=== PATIENT | male | born 1975 | race Two or more races ===

== ENCOUNTER 2023-12-07 17:17 | Emergency (ER) | payer SELFPAY ==
[2023-12-07 17:25] VITALS: BP 163/103; PULSE 104; RESP 22; TEMP 36.6; O2SAT 100; BMI 20.2
--- NOTE | 2023-12-07 17:36 | XR_ITS ---
The [address] [address] Patient Name: ANDRE SANCHEZ MRN: [id number] date: 1975 Sex: M Assigned Patient Location: ER Current Patient Location: ER Accession/Order Number: [id number] Exam Date: 12/07/2023 17:50 Report Date: 12/07/2023 18:16 At the request of: YULIYA BONILLA Procedure: XR chest 1V EXAM: XR chest 1V at 1747 hours HISTORY: Cough for 4 days. COMPARISON: None. TECHNIQUE: AP upright portable chest x-ray FINDINGS: The heart is not enlarged and the vasculature is not distended. No acute infiltrate, effusion or pneumothorax is identified. The lungs may be a bit overexpanded. The osseous structures are grossly intact. XR/XR chest 1V IMPRESSION: No acute infiltrate or evidence of cardiac decompensation. Direct comparison with a previous study would be helpful in determining the chronicity of these findings. Electronically authenticated by: CALLY FRYE Date: 12/07/2023 18:16
--- NOTE | 2023-12-07 17:36 | ECG_ITS ---
The [facility] Test Date: 2023-12-07 Pat Name: ANDRE SANCHEZ Department: Room: - Gender: Male [employer]: : 1975 Requested By: Order Number: [id number] Reading MD: KEYA GREER Measurements Intervals [place] Rate: 98 P: 82 RI: 146 QRS: 26 QRSD: 100 T: 76 QT: 372 QTc: 427 Interpretive Statements 1100 Sinus rhythm 1474 with frequent supraventricular premature complexes 2420 RSR (QR) in lead V1/V2, consistent with right ventricular conduction delay 3434 Septal myocardial infarction, age undetermined 9150 abnormal ECG No previous ECG available for comparison Electronically Signed On 12-07-2023 22:53:33 EDT by KEYA GREER
--- NOTE | 2023-12-07 17:38 | ED_ITS ---
HPI - General Adult General Chief complaint: Nausea/Vomiting/Diarrhea Stated complaint: Upper Respiratory Infection Time Seen by Provider: 12/07/23 17:27 Source: patient Mode of arrival: walk-in Limitations: no limitations History of Present Illness HPI narrative: Patient is a 48-year-old male who presents to the emergency department for 4-day history of flulike illness. He states at the beginning of the course of his illness, he had fevers and he has had issues with nausea and vomiting for the last 4 days. He has not been able to hold anything down per the patient. He has not had diarrhea. He reports generalized bodyaches, low back pain, generalized weakness. He reports some sputum production with coughing. No sick contacts in the home. He states he is continuing to urinate. Related Data Previous Rx's ?Medication ?Instructions ?Recorded ooijrhbnlfmwhau-izfnadahcjkhjhk-DO 10 ml PO Q6H PRN cold symptoms 12/07/23 2 mg-30 mg-10 mg/5 mL oral syrup #200 mL (Bromfed DM) ondansetron 4 mg disintegrating 4 mg PO Q6H PRN nausea and 12/07/23 tablet vomiting #12 tabs Allergies Allergy/AdvReac Type Severity Reaction Status Date / Time No Known Drug Allergies Allergy Verified 12/07/23 17:24 Review of Systems ROS Constitutional Reports: fever and chills Ears, nose, mouth, and throat Reports: nasal congestion; Denies: throat pain Respiratory Reports: cough; Denies: shortness of breath Gastrointestinal Reports: nausea and vomiting; Denies: diarrhea Musculoskeletal Reports: back pain Integumentary/Breast Denies: rash Neurological Reports: headache Exam Narrative Exam Narrative: Gen.: Awake, alert, in no distress Head: Normocephalic, atraumatic ENT: Moist mucous membranes Respiratory: No respiratory distress, lungs clear bilaterally Cardio: Regular rate and rhythm Gastrointestinal: Abdomen is soft, nondistended and nontender to palpation Extremities: Moves extremities equally Psych: Normal mood and affect Neuro: No focal neuro deficit Skin: Warm, dry, intact Constitutional Vital Signs, click to edit/add: Last Vital Signs Temp 97.8 F 12/07/23 17:25 Pulse 104 H 12/07/23 17:25 Resp 22 12/07/23 17:25 BP 163/103 H 12/07/23 17:25 Pulse Ox 100 12/07/23 17:25 O2 Del Method Room Air 12/07/23 17:25 Course Vital Signs Vital signs: Vital Signs Temperature 97.8 F 12/07/23 17:25 Pulse Rate 104 H 12/07/23 17:25 Respiratory Rate 22 12/07/23 17:25 Blood Pressure 163/103 H 12/07/23 17:25 Pulse Oximetry 100 12/07/23 17:25 Oxygen Delivery Method Room Air 12/07/23 17:25 Temperature 97.8 F 12/07/23 17:25 Pulse Rate 104 H 12/07/23 17:25 Respiratory Rate 22 12/07/23 17:25 Blood Pressure 163/103 H 12/07/23 17:25 Pulse Oximetry 100 12/07/23 17:25 Oxygen Delivery Method Room Air 12/07/23 17:25 Medical Decision Making MDM Narrative Medical decision making narrative: Patient was stable vitals in the ER, EKG, labs, viral swabs obtained which are unremarkable. Patient noted to be mildly dehydrated. He was given IV fluids and Zofran in the ER, no persistent episodes of emesis in the ER. He was treated for mild hypokalemia with oral potassium chloride and discharged home with Bromfed-DM and Zofran. Follow-up with PCP and return to the ER if symptoms change or worsen Medical Records Medical records reviewed: Yes I reviewed the patient's medical records Lab Data Lab results reviewed: Yes I reviewed the patient's lab results Labs: Lab Results 12/07/23 12/07/23 12/07/23 Range/Units 17:24 17:35 17:40 WBC 5.3 (4.0-11.0) 10^3/uL RBC 4.94 (4.70-6.10) 10^6/uL Hgb 15.9 (14.0-18.0) g/dL Hct 47.0 (42.0-54.0) % MCV 95.1 H (80.0-94.0) fL MCH 32.2 (25.9-34.0) pg MCHC 33.8 (29.9-35.2) g/dL RDW 12.2 (11.0-15.0) % Plt Count 173 (150-450) 10^3/uL MPV 11.6 (9.5-13.5) fL Neut % (Auto) 44.9 (43.0-75.0) % Lymph % (Auto) 36.5 (20.5-60.0) % [place] % (Auto) 17.2 H (1.7-12.0) % Eos % (Auto) 0.6 L (0.9-7.0) % Baso % (Auto) 0.6 (0.2-2.0) % Neut # (Auto) 2.4 (1.4-6.5) 10^3/uL Lymph # (Auto) 2.0 (1.2-3.8) 10^3/uL G[place]rie # (Auto) 0.9 H (0.3-0.8) 10^3/uL Eos # (Auto) 0.0 (0.0-0.7) 10^3/uL Baso # (Auto) 0.0 (0.0-0.1) 10^3/uL Abs Immat Gran (auto) 0.01 (0.00-0.03) 10^3/uL Imm/Tot Granulo (auto) 0.2 (0.0-0.5) % Sodium (136-145) mmol/L Potassium (3.5-5.1) mmol/L Chloride (98-107) mmol/L Carbon Dioxide (21.0-32.0) mmol/L Anion Gap BUN (7.0-18.0) mg/dL Creatinine (0.70-1.30) mg/dL Est GFR ( Amer) (>=60) Est GFR (Non-Af Amer) (>=60) BUN/Creatinine Ratio Glucose (74-106) mg/dL Lactate 2.3 H* (0.4-2.0) mmol/L Calcium (8.5-10.1) mg/dL Total Bilirubin (0.2-1.0) mg/dL AST (15-37) U/L ALT (16-63) U/L Alkaline Phosphatase (46-116) U/L Total Protein (6.4-8.2) g/dL Albumin (3.4-5.0) g/dL Globulin g/dL Albumin/Globulin Ratio Urine Color Dk. yellow (YELLOW) Urine Clarity Clear (CLEAR) Urine pH 5.5 (5.0-9.0) Ur Specific [place] >=1.030 A (1.005-1.025) Urine Protein 30 A (NEG/TRACE) mg/dL Urine Glucose (UA) Negative (NEGATIVE) mg/dL Urine Ketones 15 A (NEGATIVE) mg/dL Urine Occult Blood Negative (NEGATIVE) Urine Nitrite Negative (NEGATIVE) Urine Bilirubin Moderate A (NEGATIVE) Urine Urobilinogen 0.2 (0.2-1.0) EU/dL Ur Leukocyte Esterase Negative (NEGATIVE) Urine RBC None seen (0-2) #/HPF Urine WBC None seen (NONE SEEN) #/HPF Ur Squamous Epith Cells Few A (NONE/RARE) #/LPF Urine Crystals None seen (None Seen) #/HPF Urine Bacteria Small A (NONE SEEN) #/HPF Urine Casts Seen A (NONE SEEN) #/LPF Hyaline Casts Few Urine Mucus Moderate A (NONE SEEN) Ur Culture Indicated? Yes Influenza Type A Ag Negative Influenza Type B Ag Negative SARS-CoV-2 Ag (CV2AG) Negative (NEGATIVE) 12/07/23 Range/Units 17:56 WBC (4.0-11.0) 10^3/uL RBC (4.70-6.10) 10^6/uL Hgb (14.0-18.0) g/dL Hct (42.0-54.0) % MCV (80.0-94.0) fL MCH (25.9-34.0) pg MCHC (29.9-35.2) g/dL RDW (11.0-15.0) % Plt Count (150-450) 10^3/uL MPV (9.5-13.5) fL Neut % (Auto) (43.0-75.0) % Lymph % (Auto) (20.5-60.0) % [place]rie % (Auto) (1.7-12.0) % Eos % (Auto) (0.9-7.0) % Baso % (Auto) (0.2-2.0) % Neut # (Auto) (1.4-6.5) 10^3/uL Lymph # (Auto) (1.2-3.8) 10^3/uL [place]rie # (Auto) (0.3-0.8) 10^3/uL Eos # (Auto) (0.0-0.7) 10^3/uL Baso # (Auto) (0.0-0.1) 10^3/uL Abs Immat Gran (auto) (0.00-0.03) 10^3/uL Imm/Tot Granulo (auto) (0.0-0.5) % Sodium 137 (136-145) mmol/L Potassium 3.1 L (3.5-5.1) mmol/L Chloride 98 (98-107) mmol/L Carbon Dioxide 23.0 (21.0-32.0) mmol/L Anion Gap 19.1 BUN 14.0 (7.0-18.0) mg/dL Creatinine 1.18 (0.70-1.30) mg/dL Est GFR ( Amer) >60 (>=60) Est GFR (Non-Af Amer) >60 (>=60) BUN/Creatinine Ratio 11.9 Glucose 101 (74-106) mg/dL Lactate (0.4-2.0) mmol/L Calcium 8.7 (8.5-10.1) mg/dL Total Bilirubin 0.8 (0.2-1.0) mg/dL AST 59 H (15-37) U/L ALT 55 (16-63) U/L Alkaline Phosphatase 84 (46-116) U/L Total Protein 7.2 (6.4-8.2) g/dL Albumin 3.5 (3.4-5.0) g/dL Globulin 3.7 g/dL Albumin/Globulin Ratio 0.9 Urine Color (YELLOW) Urine Clarity (CLEAR) Urine pH (5.0-9.0) Ur Specific [place] (1.005-1.025) Urine Protein (NEG/TRACE) mg/dL Urine Glucose (UA) (NEGATIVE) mg/dL Urine Ketones (NEGATIVE) mg/dL Urine Occult Blood (NEGATIVE) Urine Nitrite (NEGATIVE) Urine Bilirubin (NEGATIVE) Urine Urobilinogen (0.2-1.0) EU/dL Ur Leukocyte Esterase (NEGATIVE) Urine RBC (0-2) #/HPF Urine WBC (NONE SEEN) #/HPF Ur Squamous Epith Cells (NONE/RARE) #/LPF Urine Crystals (None Seen) #/HPF Urine Bacteria (NONE SEEN) #/HPF Urine Casts (NONE SEEN) #/LPF Hyaline Casts Urine Mucus (NONE SEEN) Ur Culture Indicated? Influenza Type A Ag Influenza Type B Ag SARS-CoV-2 Ag (CV2AG) (NEGATIVE) ECG Data Attestation: I personally reviewed and interpreted this ECG as follows: (Normal sinus rhythm at a rate of 98 with frequent PVCs, no acute ST elevation. EKG reviewed by attending physician.) Discharge Plan Discharge Stand Alone Forms: Portal Instructions Chief Complaint: Nausea/Vomiting/Diarrhea Clinical Impression: Flu-like symptoms, Nausea and vomiting Patient Disposition: Home, Self-Care Time of Disposition Decision: 18:45 Condition: Good Prescriptions / Home Meds: New [id number]-CX [Bromfed DM] 2-30-10 mg/5 mL syrup 10 ml PO Q6H PRN (Reason: cold symptoms) Qty: 200 0RF ondansetron 4 mg tablet,disintegrating 4 mg PO Q6H PRN (Reason: nausea and vomiting) Qty: 12 0RF Print Language: Kiswahili Instructions: Acute Nausea and Vomiting (ED), Viral Syndrome (ED) Referrals: Physician,Non-Staff, MD [Primary Care Provider] - 1 week
[2023-12-07 17:46] LABS: Basophils Percent Auto 0.6 % (0.2-2.0); Eosinophils Percent Auto 0.6 % (0.9-7.0); Hemoglobin 15.9 g/dL (14.0-18.0); Immature Granulocytes Abs Auto 0.01 10^3/uL (0.00-0.03); Immature Granulocytes Pct Auto 0.2 % (0.0-0.5); Lymphocytes Percent Auto 36.5 % (20.5-60.0); Mean Corpuscular HGB Conc 33.8 g/dL (29.9-35.2); Mean Corpuscular Hemoglobin 32.2 pg (25.9-34.0); Mean Corpuscular Volume 95.1 fL (80.0-94.0); Mean Platelet Volume 11.6 fL (9.5-13.5); Monocytes Absolute Auto 0.9 10^3/uL (0.3-0.8); Monocytes Percent Auto 17.2 % (1.7-12.0); Neutrophils Absolute Auto 2.4 10^3/uL (1.4-6.5); Neutrophils Percent Auto 44.9 % (43.0-75.0); Platelet Count 173 10^3/uL (150-450); Red Blood Count 4.94 10^6/uL (4.70-6.10); Red Cell Distribution Width 12.2 % (11.0-15.0); White Blood Count 5.3 10^3/uL (4.0-11.0)
[2023-12-07] MEDS: 0.9 % SODIUM CHLORIDE 1,000 ML 999 ML IV (17:46)
[2023-12-07] MEDS: KETOROLAC TROMETHAMINE 30 MG/ML VIAL IVP (17:47)
[2023-12-07] MEDS: ONDANSETRON PF 4 MG/2 ML VIAL IV (17:47)
[2023-12-07 17:58] LABS: Influenza Virus A Antigen Negative; Influenza Virus B Antigen Negative; Internal Control Within Normal Limits; SARS-CoV-2 Ag NEGATIVE (NEGATIVE)
[2023-12-07 18:05] LABS: Bilirubin Urine MODERATE (NEGATIVE); Blood Urine NEGATIVE (NEGATIVE); Clarity Urine CLEAR (CLEAR); Color Urine DK. YELLOW (YELLOW); Glucose Urine UA NEGATIVE (NEGATIVE); Ketones Urine 15 mg/dL (NEGATIVE); Leukocyte Esterase Urine NEGATIVE (NEGATIVE); Nitrite Urine NEGATIVE (NEGATIVE); Protein Urine 30 mg/dL (NEG/TRACE); Specific Gravity Urine >=1.030 (1.005-1.025); Urobilinogen Urine 0.2 EU/dL (0.2-1.0); pH Urine 5.5 (5.0-9.0)
[2023-12-07 18:09] LABS: Urine Microscopic Indicated YES
[2023-12-07 18:15] LABS: Bacteria Urine SMALL #/HPF (NONE SEEN); Crystals Seen? None Seen #/HPF (None Seen); Mucus Urine MODERATE (NONE SEEN); RBC Urine NONE SEEN #/HPF (0-2); Squamous Epithelial Cell Urine FEW #/LPF (NONE/RARE); WBC Urine NONE SEEN #/HPF (NONE SEEN)
[2023-12-07 18:16] LABS: Cast Seen? SEEN #/LPF (NONE SEEN); Hyaline Casts Urine FEW; Urine Culture Indicated YES
[2023-12-07 18:20] LABS: Alanine Aminotransferase 55 U/L (16-63); Albumin Globulin Ratio 0.9; Albumin Level 3.5 g/dL (3.4-5.0); Alkaline Phosphatase 84 U/L (46-116); Anion Gap 19.1; Aspartate Amino Transferase 59 U/L (15-37); BUN Creatinine Ratio 11.9; Bilirubin Total 0.8 mg/dL (0.2-1.0); Calcium 8.7 mg/dL (8.5-10.1); Chloride 98 mmol/L (98-107); Estimated GFR (African America >60 (>=60); Estimated GFR (Non-African Ame >60 (>=60); Globulin 3.7 g/dL; Glucose 101 mg/dL (74-106); Potassium 3.1 mmol/L (3.5-5.1); Sodium 137 mmol/L (136-145); Total Protein 7.2 g/dL (6.4-8.2)
[2023-12-07 18:22] LABS: Lactate/Lactic Acid 2.3 mmol/L (0.4-2.0)
[2023-12-07] MEDS: POTASSIUM CHLORIDE 10 MEQ ER TABLET 40 MEQ PO (18:44)
[2023-12-07 18:53] VITALS: BP 138/90
== END 2023-12-07 18:53 | disposition home or self-care (01) ==
PROVIDERS: Physician Assistant; Emergency Provider Emergency Medicine
DX: R11.2 Nausea with vomiting, unspecified (principal); E87.6 Hypokalemia; E86.0 Dehydration; M54.50 Low back pain, unspecified; R53.1 Weakness; Z20.822 Contact with and (suspected) exposure to COVID-19
CPT/HCPCS: 36415; 71045; 80053; 81001; 83605; 85025; 87086; 87804; 87811; 93005; 96361; 96374; 96375; 99285